=== PATIENT | male | born 1995 | race Two or more races ===

== ENCOUNTER 2016-06-17 | Emergency (ER) | payer MEDICAID ==
[~2016-06-17] VITALS: Ht 167.6 cm; Wt 63.5 kg
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
--- NOTE | 2016-06-17 00:19 | NUR ---
RICCO MCCRARY IS AT THE BEDSIDE.
--- NOTE | 2016-06-17 00:20 | NUR ---
LINDSEY ARRIVED AND IS AT THE BEDSIDE.
--- NOTE | 2016-06-17 00:23 | NUR ---
PT'S MOTHER IS AT THE BEDSIDE.
[2016-06-17] MEDS ORDERED: IV NS 0.9% 500 ML BAG IV ONE (00:30)
--- NOTE | 2016-06-17 00:30 | NUR ---
PT'S MOTHER LEFT. PT REQUESTED NO MORE VISITORS.
--- NOTE | 2016-06-17 00:33 | NUR ---
PT TRIED TO URINATE IN A URINAL. UNABLE TO GIVE A URINE SAMPLE.
[2016-06-17] MEDS ORDERED: IV NS 0.9% 500 ML IV ONE (00:38)
[2016-06-17] MEDS ORDERED: IV SET PRIMARY 1 EA INFUS.SET MC ONE (00:38)
[2016-06-17 00:50] LABS: BASOPHILS % (AUTO) 0.1 % (0.0-2.0); EOSINOPHILS # (AUTO) 0.1 /CMM (0.0-0.7); EOSINOPHILS % (AUTO) 1.2 % (0.0-6.0); HEMATOCRIT 48 % (39-51); HEMOGLOBIN 16.1 g/dL (13.5-17.5); LYMPHOCYTES # (AUTO) 1.8 /CMM (0.8-4.8); LYMPHOCYTES % (AUTO) 19.4 % (20.0-44.0); MEAN CORPUSCULAR HEMOGLOBIN 30 PG (26.0-33.0); MEAN CORPUSCULAR HGB CONC 34 g/dl (31.0-36.0); MEAN CORPUSCULAR VOLUME 88 fL (80-96); MONOCYTES # (AUTO) 0.5 /CMM (0.1-1.30); MONOCYTES % (AUTO) 4.9 % (2.0-12.0); NEUTROPHILS # (AUTO) 6.8 /CMM (1.8-8.9); NEUTROPHILS % (AUTO) 74.4 % (43.0-81.0); PLATELET COUNT (AUTO) 226 /CMM (150-450); RDW COEFFICIENT OF VARIATION 13.7 (11.5-15.0); RED BLOOD CELL COUNT(AUTO) 5.43 MIL/uL (4.5-6.0); WHITE BLOOD COUNT (AUTO) 9.2 K/uL (4.3-11.0)
[2016-06-17 01:00] LABS: CALCIUM, SERUM 8.3 mg/dL (8.5-10.1); POTASSIUM 3.6 mmol/L (3.5-5.1)
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
[2016-06-17 01:16] LABS: ALBUMIN 4.3 g/dL (3.4-5.0); BILIRUBIN,DIRECT 0.1 mg/dL (0.0-0.2); BILIRUBIN,TOTAL 0.4 mg/dL (0.2-1.0); TOTAL PROTEIN, SERUM 7.6 g/dL (6.4-8.2)
[2016-06-17 01:17] LABS: SALICYLATE 0.2 mg/dL (2.8-20.0)
--- NOTE | 2016-06-17 01:21 | NUR ---
[employer] STILL AT THE BEDSIDE.
--- NOTE | 2016-06-17 01:21 | NUR ---
US IS AT THE BEDSIDE.
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
--- NOTE | 2016-06-17 01:48 | NUR ---
PT'S BROTHER IS AT THE BEDSIDE.
--- NOTE | 2016-06-17 02:53 | NUR ---
PT APPEARS TO BE RESTING COMFORTABLY. NO S/S OF PAIN OR DISTRESS.
--- NOTE | 2016-06-17 03:00 | NUR ---
IV removed. Catheter intact and site benign. Pressure and 4x4 applied to site. No bleeding noted.
[2016-06-17 03:06] VITALS: BP 109/68
--- NOTE | 2016-06-17 03:08 | NUR ---
Patient discharged to home in stable condition. Written and verbal after care instructions given. Patient verbalizes understanding of instruction AND RX. PT'S MOTHER AND BROTHER ARE AT THE BEDSIDE. PT AMBULATED OUT WITH A SLOW STEADY GAIT. VSS. PT REC'D A COPY OF ALL IMAGING FINDINGS AND LABS.
== END 2016-06-17 03:09 | disposition home or self-care (01) ==
LOC: ER 00:02
DX: S00.12XA Contusion of left eyelid and periocular area, initial encounter (principal); V49.49XA Driver injured in collision with other motor vehicles in traffic accident, initial encounter; Y93.89 Activity, other specified; Y92.89 Other specified places as the place of occurrence of the external cause; Y99.9 Unspecified external cause status
CPT/HCPCS: 36415; 70450; 70486; 71010; 72125; 80048; 80076; 80329; 85025; 99285; A4606; G0480; J7040; Z7610; G6039-TC